=== PATIENT | male | born 1975 | race Caucasian/White ===

== ENCOUNTER 2022-09-01 11:20 | Emergency (ER) | payer SELFPAY ==
[2022-09-01] MEDS ORDERED: Diphtheria,Pertussis(Acell),Tetanus Vaccine 0.5 ML Syringe IM ONE (11:23)
[2022-09-01] MEDS ORDERED: Lidocaine 1% PF 2 ML SDV INJECT ONE ×2 (11:23→11:29)
[2022-09-01] MEDS ORDERED: Amoxicillin/Clavulanate K 875-125 MG Tab PO ONE (11:29)
[2022-09-01] MEDS ORDERED: Rabies Vaccine (Avian) 2.5 Unit Inj Kit IM ONE (11:55)
== END 2022-09-01 13:26 | disposition home or self-care (01) ==
LOC: MW.ED 11:20
DX: S61.214A Laceration without foreign body of right ring finger without damage to nail, initial encounter (principal); S61.012A Laceration without foreign body of left thumb without damage to nail, initial encounter; W54.0XXA Bitten by dog, initial encounter
CPT/HCPCS: 12002; 90375; 90471; 90472; 90675; 90715; 96372; 99283; A9270; 12001; J3490

== ENCOUNTER 2022-12-04 09:25 | Day surgery (SDC) | payer BC ==
[~2022-12-04 09:25] MED LIST: Lactated Ringers 1,000 ML IV SCH; Propofol 200 MG/20 ML SDV ONE; Sodium Chloride 0.9% 10 ML Syringe FLUSH PRN; Sodium Chloride 0.9% 2.5 ML Syringe FLUSH PRN; Sodium Chloride 0.9% 20 ML SDV IV PRN
[2022-12-04] MEDS ORDERED: Propofol 200 MG/20 ML SDV ONE ×2 (12:12→12:32)
[2022-12-04 13:10] LABS: HEMATOCRIT 46.4 % (38.0-50.0); HEMOGLOBIN 15.6 g/dL (13.0-17.0); MEAN CORPUSCULAR HEMOGLOBIN 31.4 pg (27.0-32.0); MEAN CORPUSCULAR HGB CONC 33.6 g/dL (31.0-37.0); MEAN CORPUSCULAR VOLUME 93.4 fL (80.0-98.0); MEAN PLATELET VOLUME 11.5 fL (7.40-12.00); RED BLOOD CELL COUNT 4.97 M/uL (4.50-5.90); WHITE BLOOD CELL COUNT,WBC 5.05 K/uL (4.0-11.0)
[2022-12-04 13:38] LABS: ALANINE AMINOTRANSFERASE,ALT 27 IU/L (14-63); ALBUMIN 3.3 g/dL (3.4-5.0); ALKALINE PHOSPHATASE 90 U/L (46-116); ASPARTATE AMNIOTRANSFERASE,AST 22 IU/L (15-37); BILIRUBIN TOTAL 0.6 mg/dL (0.2-1.0); BLOOD UREA NITROGEN,BUN 14 mg/dL (7.0-18.0); CALCIUM 8.7 mg/dL (8.5-10.1); CARBON DIOXIDE,CO2 28.6 mmol/L (21.0-32.0); CHLORIDE,CL 104 mmol/L (98-107); CREATININE 1.1 mg/dL (0.8-1.3); EST CRCL DRUG DOSING (CG) 88.42 mL/min; GLUCOSE RANDOM 98 mg/dL (74-106); POTASSIUM,K 4.4 mmol/L (3.5-5.1); PROTEIN TOTAL,TP 7.2 g/dL (6.4-8.2); SODIUM,NA 140 mmol/L (136-148)
[2022-12-04 13:39] LABS: A/G RATIO 0.9 (0.9-1.6); ESTIMATED GFR 83 mL/min (>60)
[2022-12-04 14:06] LABS: CARCINOEMBRYONIC ANTIGEN,CEA < 0.5 ng/mL
== END 2022-12-04 13:15 | disposition home or self-care (01) ==
LOC: MW.SDS 09:25
PROVIDERS: ATTEND Surgery
DX: C18.3 Malignant neoplasm of hepatic flexure (principal); D12.3 Benign neoplasm of transverse colon; K62.1 Rectal polyp; E66.9 Obesity, unspecified; M54.50 Low back pain, unspecified; M54.2 Cervicalgia; G89.29 Other chronic pain; Z79.899 Other long term (current) drug therapy; Z68.35 Body mass index [BMI] 35.0-35.9, adult
CPT/HCPCS: 36415; 45380; 80053; 82378; 85027; J2704; J7120; 00811

== ENCOUNTER 2024-01-12 11:21 | Day surgery (SDC) | payer BC ==
[~2024-01-12 11:21] MED LIST changes: -Lactated Ringers 1,000 ML IV SCH; -Propofol 200 MG/20 ML SDV ONE
[2024-01-12] MEDS: Lactated Ringers 1,000 ML IV SCH (12:02)
[2024-01-12] MEDS ORDERED: propofoL 50 ML ONE (13:17)
[2024-01-12] MEDS ORDERED: Magnesium Sulfate (4.06 MEQ/ML) 5 GM/10 ML SDV ONE (13:43)
== END 2024-01-12 15:03 | disposition home or self-care (01) ==
LOC: MW.SDS 11:21
PROVIDERS: ATTEND Surgery
DX: Z12.11 Encounter for screening for malignant neoplasm of colon (principal); I10 Essential (primary) hypertension; G47.30 Sleep apnea, unspecified; E66.9 Obesity, unspecified; Z68.30 Body mass index [BMI] 30.0-30.9, adult; Z85.038 Personal history of other malignant neoplasm of large intestine; Z90.49 Acquired absence of other specified parts of digestive tract; Z79.899 Other long term (current) drug therapy; Z87.891 Personal history of nicotine dependence; Z98.0 Intestinal bypass and anastomosis status
CPT/HCPCS: 45378; J2704; J3475; J7120